=== PATIENT | female | born 1985 | race Caucasian/White ===

== ENCOUNTER 2017-11-19 14:15 | Outpatient (CLI) | payer MEDICAID, SELFPAY ==
[2017-11-19 15:11] LABS: Hemoglobin A1C 5.2 % (4.5-6.2)
[2017-11-19 15:44] LABS: ALT 33 U/L (12-78); AST 23 U/L (15-37); Albumin 3.6 g/dL (3.4-5.0); Alkaline Phosphatase 90 U/L (46-116); Anion Gap 8.8 mmol/L (3-11); BUN 11 mg/dL (7-18); Bilirubin, Total 0.3 mg/dL (0.2-1.0); CO2 25.2 mmol/L (21.0-32.0); CREATININE 0.75 mg/dL (0.55-1.02); Calcium 9.2 mg/dL (8.5-10.1); Chloride 102 mmol/L (98-107); Glucose 131 mg/dL (70-100); Potassium 3.7 mmol/L (3.5-5.1); Sodium 136 mmol/L (136-145); Total Protein 7.6 g/dL (6.4-8.2)
== END 2017-11-19 14:16 ==
PROVIDERS: PCP Physician Assistant Medical; Visit Provider Physician Assistant Medical
DX: R73.9 Hyperglycemia, unspecified (principal)
CPT/HCPCS: 36415; 80053; 83036

== ENCOUNTER 2017-12-09 13:13 | Emergency (ER) | payer MEDICAID, SELFPAY ==
[2017-12-09 13:20] VITALS: BP 140/102; PULSE 83; RESP 12; TEMP 36.9; O2SAT 99
--- NOTE | 2017-12-09 13:30 | W.ED.GENAD ---
Discharge Plan Disposition Patient Disposition: HOME Condition: Stable Discharge Details Chief Complaint: RashLesion Clinical Impression: Rash Primary Care Provider: Sandi Lewis ED Provider: Angel Osorio Home Meds and New Rx's Prescriptions: New prednisone 20 mg tablet 60 mg PO DAILY 5 Days Qty: 15 RF: 0 Continue PNV cmb#95-ferrous fumarate-FA [] 1 EACH tablet 1 ea PO DAILY Qty: 180 RF: 1 nifedipine 60 MG tablet extended release 24hr 60 mg PO DAILY Qty: 30 RF: 3 Discharge Instructions Instructions: Acute Rash (ED) Additional Instructions: the rash appears to be a local skin reaction. Try using coritisone or other over the counter steroid cream. You can also take over the counter benadryl for itching if rash gets more numerous or itching is unbearable you can start taking the prednisone if rash persists next week see your primary care provider if you have difficulty breathing, severe pain or nausea/vomit that is persistent return to the emergency department Discharge Data Discharge Physician: Angel Osorio Medical Decision Making [facility] Narrative Medical decision making narrative: 32 yo female comes in with cc of rash. SHe states she started with a rash in the left arm yesterday and then spread to the abdomen. NO fevers or pain, just states it is itching, hasn't tried taking anything. No new meds or soaps, has a and has been using detergent for her that's different. Suspect contact dermatitis or local reaction, no evidence of anaphlyaxis and no pain or warmth to suggest cellulitis. Will have her take benadryl and cortisone cream and will prescribe prednisone if symptoms continue I advised she start taking this Differential Diagnosis contact dermatitis, urticaria, cat scratch disease HPI - General Adult General Mode of arrival: ambulatory. Date/Time Provider Initiated Documentation: 12/09/17 13:15. Limitations to Documentation: no limitations. Information obtained by: patient. History of Present Illness 32 year old F presents to the emergency department with the chief complaint of rash, described as moderate, with intensity rated at 3. Quality is described as other (itching), and is localized to the abdomen, left and upper extremity. Patient started experiencing this day(s) (1) and it has been constant. No relieving factors improve symptom(s), No exacerbating factors reported . Patient notes no other symptoms.. Patient did receive the following treatments prior to arrival, none Related Data Previous Rx's Medication Instructions Recorded PNV cmb#95-ferrous fumarate-FA 1 ea PO DAILY #180 tab 05/07/17 [] nifedipine 60 mg PO DAILY #30 tab-cap 09/09/17 prednisone 60 mg PO DAILY 5 Days #15 tab 12/09/17 Allergies Allergy/AdvReac Type Severity Reaction Status Date / Time shellfish derived Allergy Severe Anaphylaxsi Unverified 12/09/17 13:24 s cetirizine HCl [From [facility]] AdvReac Mild Headache Unverified 12/09/17 13:24 General Stated Complaint: RashLesion MENG: 5 Review of Systems Review of Systems All systems reviewed & are unremarkable except as noted in HPI and below Constitutional Denies chills, Denies fever(s) and Denies weakness Eyes Patient Denies loss of vision ENT Denies change in voice Cardiovascular Denies chest pain and Denies dyspnea Respiratory Denies dyspnea Gastrointestinal Denies abdominal pain, Denies nausea and Denies vomiting Genitourinary Denies dysuria Musculoskeletal Denies joint swelling Neurologic Denies loss of vision and Denies weakness Psychiatric Denies depression Endocrine Denies cold intolerance and Denies heat intolerance Allergic/Immunologic Reports urticaria PFSH Family History Sister Diabetes Grandmother Cerebrovascular accident Medical History History of HPV infection Hypertension affecting , antepartum Protein C deficiency (07/09/17) Tobacco use Social History Smoking/Tobacco Use Status: Former Tobacco Use Surgical History section (11/05/10) Cholecystectomy Hysteroscopy Exam Const General: no acute distress Orientation: alert HENMT Head: normal to inspection Ears: external ears normal General nose exam: external nose normal Mouth: moist mucous membranes Eyes General: appearance normal, both eyes and all related structures Neck Neck: normal visual inspection Resp Effort & Inspection: normal respiratory effort and able to speak in complete sentences Cardio Rate: regular rate Skin General skin exam: other (multiple small areas of mild erythema less than 2cm in diameter on left arm and abdomen, not warm to touch) Neuro General: alert and oriented x3 Extrem General: normal to inspection Psych Mental Status: mental status grossly normal Course Vital Signs Temperature 36.9 C 12/09/17 13:20 Pulse 83 12/09/17 13:20 Respiratory Rate 12 12/09/17 13:20 Blood Pressure 140/102 H 12/09/17 13:20 Pulse Oximetry 99 12/09/17 13:20 Temperature 36.9 C 12/09/17 13:20 Pulse 83 12/09/17 13:20 Respiratory Rate 12 12/09/17 13:20 Blood Pressure 140/102 H 12/09/17 13:20 Pulse Oximetry 99 12/09/17 13:20
--- NOTE | 2017-12-09 13:35 | ED.GENADUL_ITS ---
Discharge Plan Disposition Patient Disposition: HOME Condition: Stable Discharge Details Chief Complaint: RashLesion Clinical Impression: Rash Primary Care Provider: Sandi Lewis ED Provider: Angel Osorio Home Meds and New Rx's Prescriptions: New prednisone 20 mg tablet 60 mg PO DAILY 5 Days Qty: 15 RF: 0 Continue PNV cmb#95-ferrous fumarate-FA [] 1 EACH tablet 1 ea PO DAILY Qty: 180 RF: 1 nifedipine 60 MG tablet extended release 24hr 60 mg PO DAILY Qty: 30 RF: 3 Discharge Instructions Instructions: Acute Rash (ED) Additional Instructions: the rash appears to be a local skin reaction. Try using coritisone or other over the counter steroid cream. You can also take over the counter benadryl for itching if rash gets more numerous or itching is unbearable you can start taking the prednisone if rash persists next week see your primary care provider if you have difficulty breathing, severe pain or nausea/vomit that is persistent return to the emergency department Discharge Data Discharge Physician: Angel Osorio Medical Decision Making [facility] Narrative Medical decision making narrative: 32 yo female comes in with cc of rash. SHe states she started with a rash in the left arm yesterday and then spread to the abdomen. NO fevers or pain, just states it is itching, hasn't tried taking anything. No new meds or soaps, has a and has been using detergent for her that's different. Suspect contact dermatitis or local reaction, no evidence of anaphlyaxis and no pain or warmth to suggest cellulitis. Will have her take benadryl and cortisone cream and will prescribe prednisone if symptoms continue I advised she start taking this Differential Diagnosis contact dermatitis, urticaria, cat scratch disease HPI - General Adult General Mode of arrival: ambulatory . Date/Time Provider Initiated Documentation: 12/09/17 13:15 . Limitations to Documentation: no limitations . Information obtained by: patient . History of Present Illness 32 year old F presents to the emergency department with the chief complaint of rash, described as moderate, with intensity rated at 3. Quality is described as other (itching), and is localized to the abdomen, left and upper extremity. Patient started experiencing this day(s) (1) and it has been constant. No relieving factors improve symptom(s), No exacerbating factors reported . Patient notes no other symptoms.. Patient did receive the following treatments prior to arrival, none Related Data Previous Rx's Medication Instructions Recorded PNV cmb#95-ferrous fumarate-FA 1 ea PO DAILY #180 tab 05/07/17 [] nifedipine 60 mg PO DAILY #30 tab-cap 09/09/17 prednisone 60 mg PO DAILY 5 Days #15 tab 12/09/17 Allergies Allergy/AdvReac Type Severity Reaction Status Date / Time shellfish derived Allergy Severe Anaphylaxsi Unverified 12/09/17 13:24 s cetirizine HCl [From [facility]] AdvReac Mild Headache Unverified 12/09/17 13:24 General Stated Complaint: RashLesion MENG: 5 Review of Systems Review of Systems All systems reviewed & are unremarkable except as noted in HPI and below Constitutional Denies chills, Denies fever(s) and Denies weakness Eyes Patient Denies loss of vision ENT Denies change in voice Cardiovascular Denies chest pain and Denies dyspnea Respiratory Denies dyspnea Gastrointestinal Denies abdominal pain, Denies nausea and Denies vomiting Genitourinary Denies dysuria Musculoskeletal Denies joint swelling Neurologic Denies loss of vision and Denies weakness Psychiatric Denies depression Endocrine Denies cold intolerance and Denies heat intolerance Allergic/Immunologic Reports urticaria PFSH Family History Sister Diabetes Grandmother Cerebrovascular accident Medical History History of HPV infection Hypertension affecting , antepartum Protein C deficiency (07/09/17) Tobacco use Social History Smoking/Tobacco Use Status: Former Tobacco Use Surgical History section (11/05/10) Cholecystectomy Hysteroscopy Exam Const General: no acute distress Orientation: alert HENMT Head: normal to inspection Ears: external ears normal General nose exam: external nose normal Mouth: moist mucous membranes Eyes General: appearance normal, both eyes and all related structures Neck Neck: normal visual inspection Resp Effort & Inspection: normal respiratory effort and able to speak in complete sentences Cardio Rate: regular rate Skin General skin exam: other (multiple small areas of mild erythema less than 2cm in diameter on left arm and abdomen, not warm to touch) Neuro General: alert and oriented x3 Extrem General: normal to inspection Psych Mental Status: mental status grossly normal Course Vital Signs Temperature 36.9 C 12/09/17 13:20 Pulse 83 12/09/17 13:20 Respiratory Rate 12 12/09/17 13:20 Blood Pressure 140/102 H 12/09/17 13:20 Pulse Oximetry 99 12/09/17 13:20 Temperature 36.9 C 12/09/17 13:20 Pulse 83 12/09/17 13:20 Respiratory Rate 12 12/09/17 13:20 Blood Pressure 140/102 H 12/09/17 13:20 Pulse Oximetry 99 12/09/17 13:20
== END 2017-12-09 13:42 | disposition home or self-care (01) ==
LOC: ER 13:43
PROVIDERS: Emergency Provider Emergency Medicine; PCP Physician Assistant Medical
DX: R21 Rash and other nonspecific skin eruption (principal)
CPT/HCPCS: 99283

== ENCOUNTER 2018-01-02 16:17 | Emergency (ER) | payer MEDICAID, SELFPAY ==
[2018-01-02 16:23] VITALS: BP 136/101; PULSE 115; RESP 18; TEMP 36.7; O2SAT 98
--- NOTE | 2018-01-02 16:32 | W.ED.GENAD ---
Discharge Plan Disposition Patient Disposition: HOME Condition: Stable Discharge Details Chief Complaint: Sorethroat Clinical Impression: Cough Primary Care Provider: Sandi Lewis ED Provider: Angel Osorio Home Meds and New Rx's Prescriptions: New doxycycline hyclate 100 mg tablet 100 mg PO BID Qty: 14 RF: 0 Continue PNV cmb#95-ferrous fumarate-FA [] 1 EACH tablet 1 ea PO DAILY Qty: 180 RF: 1 nifedipine 60 MG tablet extended release 24hr 60 mg PO DAILY Qty: 30 RF: 3 Discharge Instructions Instructions: Acute Cough (ED) Discharge Data Discharge Physician: Angel Osorio Medical Decision Making 32 yo female who states she has a hx of htn, former smoker, who comes in with cc of cough for 3 weeks that is productive. Denies recent fevers, chills, recent travel. She has clear lungs on exam with intermittent hacking cough. I suspect uri but given length of time with the cough will cover for CAP. Normal oxygen saturations and appears well without fevers so do not feel xray indicated. Advised f/u with pcp and return precautions given Differential Diagnosis bronchitis, uri, pna HPI General Mode of arrival: ambulatory. Date/Time Provider Initiated Documentation: 01/02/18 16:21. Limitations to Documentation: no limitations. Information obtained by: patient. History of Present Illness 32 year old F presents to the emergency department with the chief complaint of cough, described as moderate, with intensity rated at 4. No relieving factors improve symptom(s), No exacerbating factors reported . Patient notes other (sore throat). Patient did receive the following treatments prior to arrival, none Related Data Home Medications Medication Instructions Recorded Confirmed PNV cmb#95-ferrous fumarate-FA 1 ea PO DAILY #180 tab 05/07/17 12/09/17 [] nifedipine 60 mg PO DAILY #30 tab-cap 09/09/17 12/09/17 doxycycline hyclate 100 mg PO BID #14 tab 01/02/18 Previous Rx's Medication Instructions Recorded PNV cmb#95-ferrous fumarate-FA 1 ea PO DAILY #180 tab 05/07/17 [] nifedipine 60 mg PO DAILY #30 tab-cap 09/09/17 doxycycline hyclate 100 mg PO BID #14 tab 01/02/18 Allergies Allergy/AdvReac Type Severity Reaction Status Date / Time shellfish derived Allergy Severe Anaphylaxsi Unverified 12/09/17 13:24 s cetirizine HCl [From [facility]] AdvReac Mild Headache Unverified 12/09/17 13:24 General Stated Complaint: Sorethroat MENG: 4 Review of Systems Review of Systems All systems reviewed & are unremarkable except as noted in HPI and below Constitutional Denies chills, Denies fever(s) and Denies weakness Eyes Denies loss of vision ENT Denies change in voice Cardiovascular Denies chest pain and Denies dyspnea Respiratory Denies dyspnea Gastrointestinal Denies abdominal pain, Denies nausea and Denies vomiting Integumentary/Breasts Denies rash Neurologic Denies loss of vision and Denies weakness Psychiatric Denies depression Exam Const General: no acute distress Orientation: alert HENWY Head: normal to inspection Ears: external ears normal General nose exam: external nose normal Mouth: moist mucous membranes Eyes General: appearance normal, both eyes and all related structures Neck Neck: normal visual inspection Resp Effort & Inspection: normal respiratory effort and able to speak in complete sentences Cardio Rate: regular rate Skin General skin exam: no rashes or lesions noted Neuro General: alert and oriented x3 Extrem General: normal to inspection Psych Mental Status: mental status grossly normal Course Vital Signs Temperature 36.7 C 01/02/18 16:23 Pulse 115 H 01/02/18 16:23 Respiratory Rate 18 01/02/18 16:23 Blood Pressure 136/101 H 01/02/18 16:23 Pulse Oximetry 98 01/02/18 16:23 Temperature 36.7 C 01/02/18 16:23 Temperature Source Temporal Artery Scan 01/02/18 16:23 Pulse 115 H 01/02/18 16:23 Respiratory Rate 18 01/02/18 16:23 Respiratory Effort 01/02/18 16:25 Blood Pressure 136/101 H 01/02/18 16:23 Blood Pressure Position Sitting 01/02/18 16:23 Pulse Oximetry 98 01/02/18 16:23 Oxygen Delivery Method Room Air 01/02/18 16:23 Oxygen Flow Rate 0 01/02/18 16:23 Pain Level 0 01/02/18 16:23
--- NOTE | 2018-01-02 16:35 | ED.GENADUL_ITS ---
Discharge Plan Disposition Patient Disposition: HOME Condition: Stable Discharge Details Chief Complaint: Sorethroat Clinical Impression: Cough Primary Care Provider: Sandi Lewis ED Provider: Angel Osorio Home Meds and New Rx's Prescriptions: New doxycycline hyclate 100 mg tablet 100 mg PO BID Qty: 14 RF: 0 Continue PNV cmb#95-ferrous fumarate-FA [] 1 EACH tablet 1 ea PO DAILY Qty: 180 RF: 1 nifedipine 60 MG tablet extended release 24hr 60 mg PO DAILY Qty: 30 RF: 3 Discharge Instructions Instructions: Acute Cough (ED) Discharge Data Discharge Physician: Angel Osorio Medical Decision Making 32 yo female who states she has a hx of htn, former smoker, who comes in with cc of cough for 3 weeks that is productive. Denies recent fevers, chills, recent travel. She has clear lungs on exam with intermittent hacking cough. I suspect uri but given length of time with the cough will cover for CAP. Normal oxygen saturations and appears well without fevers so do not feel xray indicated. Advised f/u with pcp and return precautions given Differential Diagnosis bronchitis, uri, pna HPI General Mode of arrival: ambulatory . Date/Time Provider Initiated Documentation: 01/02/18 16:21 . Limitations to Documentation: no limitations . Information obtained by: patient . History of Present Illness 32 year old F presents to the emergency department with the chief complaint of cough, described as moderate, with intensity rated at 4. No relieving factors improve symptom(s), No exacerbating factors reported . Patient notes other (sore throat). Patient did receive the following treatments prior to arrival, none Related Data Home Medications Medication Instructions Recorded Confirmed PNV cmb#95-ferrous fumarate-FA 1 ea PO DAILY #180 tab 05/07/17 12/09/17 [] nifedipine 60 mg PO DAILY #30 tab-cap 09/09/17 12/09/17 doxycycline hyclate 100 mg PO BID #14 tab 01/02/18 Previous Rx's Medication Instructions Recorded PNV cmb#95-ferrous fumarate-FA 1 ea PO DAILY #180 tab 05/07/17 [] nifedipine 60 mg PO DAILY #30 tab-cap 09/09/17 doxycycline hyclate 100 mg PO BID #14 tab 01/02/18 Allergies Allergy/AdvReac Type Severity Reaction Status Date / Time shellfish derived Allergy Severe Anaphylaxsi Unverified 12/09/17 13:24 s cetirizine HCl [From [facility]] AdvReac Mild Headache Unverified 12/09/17 13:24 General Stated Complaint: Sorethroat MENG: 4 Review of Systems Review of Systems All systems reviewed & are unremarkable except as noted in HPI and below Constitutional Denies chills, Denies fever(s) and Denies weakness Eyes Denies loss of vision ENT Denies change in voice Cardiovascular Denies chest pain and Denies dyspnea Respiratory Denies dyspnea Gastrointestinal Denies abdominal pain, Denies nausea and Denies vomiting Integumentary/Breasts Denies rash Neurologic Denies loss of vision and Denies weakness Psychiatric Denies depression Exam Const General: no acute distress Orientation: alert HENND Head: normal to inspection Ears: external ears normal General nose exam: external nose normal Mouth: moist mucous membranes Eyes General: appearance normal, both eyes and all related structures Neck Neck: normal visual inspection Resp Effort & Inspection: normal respiratory effort and able to speak in complete sentences Cardio Rate: regular rate Skin General skin exam: no rashes or lesions noted Neuro General: alert and oriented x3 Extrem General: normal to inspection Psych Mental Status: mental status grossly normal Course Vital Signs Temperature 36.7 C 01/02/18 16:23 Pulse 115 H 01/02/18 16:23 Respiratory Rate 18 01/02/18 16:23 Blood Pressure 136/101 H 01/02/18 16:23 Pulse Oximetry 98 01/02/18 16:23 Temperature 36.7 C 01/02/18 16:23 Temperature Source Temporal Artery Scan 01/02/18 16:23 Pulse 115 H 01/02/18 16:23 Respiratory Rate 18 01/02/18 16:23 Respiratory Effort 01/02/18 16:25 Blood Pressure 136/101 H 01/02/18 16:23 Blood Pressure Position Sitting 01/02/18 16:23 Pulse Oximetry 98 01/02/18 16:23 Oxygen Delivery Method Room Air 01/02/18 16:23 Oxygen Flow Rate 0 01/02/18 16:23 Pain Level 0 01/02/18 16:23
[2018-01-02 17:32] VITALS: BP 110/70; PULSE 89; RESP 18; TEMP 36.8; O2SAT 99
== END 2018-01-02 16:45 | disposition home or self-care (01) ==
LOC: ER 16:44
PROVIDERS: Emergency Provider Emergency Medicine; PCP Physician Assistant Medical
DX: R05 Cough (principal); I10 Essential (primary) hypertension; Z87.891 Personal history of nicotine dependence
CPT/HCPCS: 99283

== ENCOUNTER 2018-02-19 00:26 | Outpatient (CLI) | payer MEDICAID, SELFPAY ==
--- NOTE | 2018-02-19 08:00 | DI.US_ITS ---
SYMPTOM/DIAGNOSIS: IUD PLACEMENT, UNABLE TO LOCATE STRINGS, Z30.431 PELVIC ULTRASOUND: Pelvic ultrasound was performed transabdominally and transvaginally. Please see worksheet for measurements of the pelvic structures. There is an IUD in place in the endometrial cavity. Endometrial stripe is about 6 mm. in thickness and appears fairly homogeneous. There may be trace free fluid in the endometrial cavity. The myometrium is unremarkable. Right ovary contains an approximately 17 by 16 by 8 mm. in diameter complex cyst as well as a 12 mm. cyst with some low level internal echoes, these may represent hemorrhagic cysts. Other etiologies not excluded and follow up examination is recommended. Left ovary has a normal follicular appearance. CONCLUSION: 1. IUD in place in the endometrial cavity, trace free fluid may be present in the endometrial cavity. 2. Small complex cysts, probably representing hemorrhagic cysts in right ovary. Follow up ultrasound suggested in 4-6 weeks.
== END 2018-02-19 00:46 ==
PROVIDERS: PCP Physician Assistant Medical; Visit Provider Nurse Practitioner Women's Health
DX: N83.01 Follicular cyst of right ovary (principal); Z30.431 Encounter for routine checking of intrauterine contraceptive device
CPT/HCPCS: 76830; 76856

== ENCOUNTER 2018-03-25 00:42 | Outpatient (CLI) | payer MEDICAID, SELFPAY ==
--- NOTE | 2018-03-25 13:03 | DI.US_ITS ---
SYMPTOMS/DIAGNOSIS: RIGHT OVARIAN CYST, F/U FROM US ON 02/19/18, N83.201 PELVIC ULTRASOUND: Transabdominal and transvaginal examination was performed. The uterus measures 8 cm long x 4.2 cm AP x 5.8 cm transverse. No myometrial mass is present. There is an intrauterine device seen within the body of the endometrium. There is a question of possible extension of one of the arms of the intrauterine device into the myometrium. The right ovary measures 3.1 x 1.8 x 3.1 cm. There are small follicular cysts. There is normal blood flow. No evidence of torsion is seen. The left ovary measures 2.7 x 1.7 x 2.8 cm. There are multiple follicular cysts. There is normal blood flow. No evidence of torsion. There is an involutional cyst seen on the left ovary. No significant free fluid is seen. No hydronephrosis is identified. Note is made of diffuse increased echogenicity of the liver suggesting hepatic steatosis. IMPRESSION: 1. Resolution of the previously noted right ovarian cyst. 2. Intrauterine device in place. It appears stable in position compared to the examination from 02/19/18.
== END 2018-03-25 01:02 ==
PROVIDERS: PCP Physician Assistant Medical; Visit Provider Nurse Practitioner Women's Health
DX: N83.201 Unspecified ovarian cyst, right side (principal); Z97.5 Presence of (intrauterine) contraceptive device; K76.0 Fatty (change of) liver, not elsewhere classified; N83.01 Follicular cyst of right ovary; N83.02 Follicular cyst of left ovary
CPT/HCPCS: 76830; 76856

== ENCOUNTER 2018-10-15 20:20 | Outpatient (REF) | payer MEDICAID, SELFPAY | END 2018-10-15 20:40 | LOC: LBN 20:20 | PROVIDERS: PCP Physician Assistant Medical; Visit Provider Nurse Practitioner Women's Health | DX: R30.0 Dysuria (principal) | CPT/HCPCS: 87086 ==

== ENCOUNTER 2018-10-29 08:19 | Emergency (ER) | payer MEDICAID, SELFPAY ==
--- NOTE | 2018-10-29 08:21 | ED.GENADUL_ITS ---
Discharge Plan Disposition Patient Disposition: HOME Condition: Fair Discharge Details Chief Complaint: RashLesion Clinical Impression: Allergic reaction Primary Care Provider: Sandi Lewis ED Provider: Shweta Pemberton Home Meds and New Rx's Prescriptions: New prednisone 20 mg tablet 40 mg PO DAILY Qty: 6 RF: 0 Continued Mirena 20 mcg/24 hr (5 years) intrauterine device 1 insert IY ONCE RF: 0 PNV cmb#95-ferrous fumarate-FA [] 1 EACH tablet 1 ea PO DAILY Qty: 180 RF: 1 Discharge Instructions Instructions: Prednisone (By mouth), General Allergic Reaction (ED) Additional Instructions: Encourage hydration. Please take prednisone as prescribed, first dose given here today. You may use Benadryl or other antihistamine to help with symptomatic management. If you develop fevers/chills, shortness of breath, difficulty breathing, vomiting or other new/worsening symptoms please seek care urgently once again. Please follow up with primary care next week, please have them reevaluate your breast as well as your rash. Referrals: Sandi Lewis [Primary Care Provider] - Medical Decision Making Patient is a 33 year old female with c/c of rash that began yesterday and has gotten worse this AM. Was concerned that she may have been developing hand foot and mouth yesterday but states that no rash has developed on the palms or soles. Patient works in a daycare. Reports that multiple of the children she has been around have been ill, some with strep throat. Se is endorsing sore throat. Endorsing right ear pain/itching. On exam, she appears nontoxic, is itching frequently. She has a migratory blanchable erythematous rash and urticaria. Areas of excoriation noted on extremities.Lungs are clear. No intraoral lesions. Patient had also been endorsing left breast discomfort which has since resolved. Had nipple discharge yesterday. Normal breast exam today. POC and rapid strep both negative today. Patients history and exam today are consistent with allergic reaction. As she is having intraoral itching, will begin patient on prednisone. At this point, I do not see evidence of breast discharge, abscess, infection. Have asked that she f/u with PCP next week for reevaluation. We discussed new/worsening symptoms and when to seek care urgently once again. Discussed s/e associated with prednisone. All of her questions and concerns were addressed, she is in agreement iwth this plan HPI General Mode of arrival: ambulatory . Limitations to Documentation: no limitations . Information obtained by: patient and RN notes reviewed . HPI Narrative: Patient mario 33 year old female presenting today with c/c of itching. States that she began having itching on her hands and feet yesterday. Awoke this morning feeling much more diffuse. Endorses itching in mouth, right ear, chest, abdomen and extremities. No known new contact or allergen. Denies SOB, CP. Has not noted any lesions in her mouth. Is also endorsing sore throat. No cough. No fevers/chills. No GI upset. Patient also had left breast pain yesterday and noted discharge from her nipple. Patient is one year , states that she did not breast feed this child. Denies pain in this breast today. No vaginal discharge. States that she just finished her menses. Patient has IUD in place. Related Data Home Medications Medication Instructions Recorded Confirmed PNV cmb#95-ferrous fumarate-FA 1 ea PO DAILY #180 tab 05/07/17 10/15/18 [] levonorgestrel 20 mcg/24 hours (5 1 insert IY ONCE 02/17/18 10/15/18 yrs) 52 mg intrauterine device prednisone 40 mg PO DAILY #6 tab 10/29/18 Previous Rx's Medication Instructions Recorded PNV cmb#95-ferrous fumarate-FA 1 ea PO DAILY #180 tab 05/07/17 [] prednisone 40 mg PO DAILY #6 tab 10/29/18 Allergies Allergy/AdvReac Type Severity Reaction Status Date / Time shellfish derived Allergy Severe Anaphylaxsi Unverified 10/15/18 12:53 s cetirizine HCl [From Zyrtec] AdvReac Mild Headache Unverified 10/15/18 12:53 General MENG: 4 Review of Systems Constitutional Reports as per HPI, Denies chills, Denies fatigue, Denies fever(s), Denies headache(s) and Denies poor appetite Eyes Reports as per HPI, Denies eye discharge and Denies irritation ENT Reports as per HPI, Denies ear discharge, Reports otalgia, Denies headache(s), Denies neck pain, Denies post nasal drip, Denies sinus pain, Denies sinus pressure, Reports sore throat, Denies throat swelling and Denies tongue swelling Cardiovascular Reports as per HPI, Denies chest pain and Denies dyspnea Respiratory Reports as per HPI, Denies cough and Denies dyspnea Gastrointestinal Reports as per HPI, Denies abdominal pain, Denies change in bowel habits, Denies nausea and Denies vomiting Musculoskeletal Denies neck pain Integumentary/Breasts Reports as per HPI, Reports rash and Denies skin pain Neurologic Reports as per HPI and Denies headache(s) Endocrine Denies fatigue Allergic/Immunologic Denies throat swelling and Denies tongue swelling [facility] Medical History History of HPV infection Hypertension affecting , antepartum IUD surveillance (Acute) Protein C deficiency (07/09/17) Tobacco use Surgical History section (11/05/10) Cholecystectomy Hysteroscopy Social History Smoking/Tobacco Use Status: Current every day Tobacco Type: cigarettes Smoking cigarettes per day: 2 Alcohol Intake: never Drug use: Never Substance use type: does not use Do you feel safe in your relationship?: Yes Exam Const General: cooperative, healthy appearing, comfortable, no acute distress, well developed and well groomed Nutritional Appearance: average body habitus and well nourished Orientation: alert and awake [facility] Head: normal to inspection, normocephalic and atraumatic Ears: hearing grossly normal bilaterally, external ears normal and TM's normal bilaterally General nose exam: external nose normal and nares normal Face and sinus: normal facial exam, sinuses nontender and face symmetric Mouth: oral mucosae normal, lip normal, tongue normal, oropharynx normal and moist mucous membranes Teeth and gingiva: dentition normal Throat: posterior oropharynx normal, tonsils normal and uvula midline Eyes General: appearance normal, both eyes and all related structures Neck Neck: not normal to visual inspection (rash as below), full ROM, no lymphadenopathy and no meningeal signs Chest Breast inspection: normal inspection of the breasts and normal inspection of the axillae Breast palpation: normal palpation of the breasts, normal palpation of the axillae and no axillary lymphadenopathy Resp Effort & Inspection: normal respiratory effort, able to speak in complete sentences and no respiratory distress Auscultation: clear to auscultation bilaterally, no rales, no rhonchi and no wheezes Cardio Rate: regular rate Rhythm: regular rhythm Heart Sounds: S1 normal and S2 normal GI Inspection: abnormal to inspection (rash on abdomen as below) Skin Rashes: rashes noted (migratory blanchable erythematous rash) Full body images: 1. rash is seen migrating while visiting, blanchable, erythematous rash initially seen as drawn. Hives on abdomen. 2. 3. 4. Neuro General: alert and awake Cognition: normal cognition Speech: speech normal Gait: normal gait Psych Appearance: grossly normal and well kempt Mental Status: mental status grossly normal Speech and Movement: speech and movement normal
[2018-10-29 08:25] VITALS: RESP 16; TEMP 36.8; O2SAT 100
[2018-10-29 08:48] VITALS: BP 145/97; PULSE 81
[2018-10-29] MEDS: predniSONE 20 MG TAB 40 MG PO (08:49)
[2018-10-29 09:09] VITALS: BP 138/97; PULSE 80; RESP 16; O2SAT 100
== END 2018-10-29 09:10 | disposition home or self-care (01) ==
PROVIDERS: Emergency Provider Physician Assistant; PCP Physician Assistant Medical
DX: L29.9 Pruritus, unspecified (principal); L50.0 Allergic urticaria; J02.9 Acute pharyngitis, unspecified; H92.01 Otalgia, right ear; N64.52 Nipple discharge
CPT/HCPCS: 81025; 87880; 99283; 87081; J7512

== ENCOUNTER 2018-11-20 17:11 | Emergency (ER) | payer MEDICAID, SELFPAY ==
[2018-11-20 17:18] VITALS: BP 151/108; PULSE 115; RESP 16; TEMP 36.7; O2SAT 98
--- NOTE | 2018-11-20 17:29 | ED.GENADUL_ITS ---
Discharge Plan Disposition Patient Disposition: HOME Condition: Fair Discharge Details Chief Complaint: RashLesion Clinical Impression: Acute urticaria Primary Care Provider: Sandi Lewis ED Provider: Shweta Pemberton Home Meds and New Rx's Prescriptions: New hydroxyzine HCl 25 mg tablet 25 mg PO TID PRN (Reason: itching) Qty: 20 RF: 0 Continued Mirena 20 mcg/24 hr (5 years) intrauterine device 1 insert IY ONCE RF: 0 Discharge Instructions Instructions: Hydroxyzine (By mouth), Urticaria (ED) Additional Instructions: Encourage hydration. Please try to decrease your stress. Please take hydroxyzine as prescribed as needed for symptom medic management. This may make you drowsy, please do not take this medication while driving. If you develop fever/chills, pain, inability stay hydrated or other new/worsening symptoms please seek care urgently once again. Otherwise, please follow-up with primary care this week for reevaluation. You may need follow-up with b operator and/or evaluation for allergy testing. Referrals: Sandi Lewis [Primary Care Provider] - Discharge Data Discharge Date/Time-TO BE ENTERED AT DEPARTURE: 11/20/18 21:10 Medical Decision Making <Faisal Ayala MD - Last Filed: 12/05/18 08:21> Patient evaluated and treated by JONATHAN Pemberton - please see her documentation regarding ED course and treatment. I did not evaluate the patient. I discussed the case with JONATHAN Pemberton and reviewed her documentation and agree with treatment plan as outlined. <JONATHAN Rodriguez - Last Filed: 11/24/18 00:09> Patient is a 33-year-old female presenting today with chief complaint of rash is persistent over the past month. She is been on 2 half weeks of prednisone despite that her urticarial rash persist. She reports that rash is consistent but is migratory in nature. Reports it is very itchy. She denies any fevers or chills. Denies any recent travel. No known STD history. No new sexual partners. Is under a lot of stress recently. On exam, patient has a rash on her back that is erythematous, nontender to palpation, warmth. The area of excoriation is raised blanched. Given the length of her symptoms, I feel that screen with labs at this time. She denies any history of syphilis we will obtain syphilis serology. Lungs are clear, no wheezes, rales or rhonchi. No stridor. No intraoral lesions. Rash is not noted elsewhere. She is teary on exam speaking of her current life stressors. Patient is tachycardic at 115. We will hydrate. She does report that she has not been drinking as much water step secondary to her stress. Labs reviewed by myself, she is a slightly elevated white count of 12.45. Anion gap 11.9. Creatinine is 1.17. Glucose is elevated at 212 discussed these findings with the patient. I do not see any evidence of active infection at this time. Rash not consistent with cellulitis. Discussed the patient's glucose, she reports that she has known mild elevation of her glucose, had a history of ges tational diabetes. Reports that diabetes is very common in her family. Will obtain A1c. This will not be available for review tonight. Do not see any reason to perform imaging at this time. Patient's heart rate is downtrending at 100 after 1 L of fluids. We discussed risks and benefits of continuing steroids at this point and I feel is appropriate as she had no relief after 2 weeks of steroids. After reviewing erythema the patient, she is now reporting that the rash is actually intermittent. States it only comes on during times of stress. States it does come on after work, states that it comes back every night at 5:00. However, she has noticed the rash is not present when she is distracted or busy with friends. Concerned this is stress reaction. I advised that she continue with oral antihistamines and try stress reduction techniques. I have encouraged her to follow-up closely with her primary care. She is given strict return precautions. Syphilis serology is still pending, will contact her with any positive results. All of her questions and concerns were addressed and she is in agreement this plan. She will discuss the findings of the A1c further with her primary care. HPI <Faisal Ayala MD - Last Filed: 12/05/18 08:21> General Date/Time Provider Initiated Documentation: 11/20/18 17:29 . Related Data Home Medications Medication Instructions Recorded Confirmed levonorgestrel 20 mcg/24 hours (5 1 insert IY ONCE 02/17/18 11/20/18 yrs) 52 mg intrauterine device hydroxyzine HCl 25 mg PO TID PRN #20 tab 11/20/18 Previous Rx's Medication Instructions Recorded hydroxyzine HCl 25 mg PO TID PRN #20 tab 11/20/18 Allergies Allergy/AdvReac Type Severity Reaction Status Date / Time shellfish derived Allergy Severe Anaphylaxsi Unverified 11/20/18 17:21 s [facility] AdvReac Mild Headache Unverified 11/20/18 17:21 <JONATHAN Rodriguez - Last Filed: 11/24/18 00:09> General Mode of arrival: ambulatory . Limitations to Documentation: no limitations . Information obtained by: patient and RN notes reviewed . HPI Narrative: Patient is a 33-year-old female, well-known to myself, with chief complaint of rash. She was seen by myself on 10/29/2018 for the same rash. At that time, her rash was consistent with allergic reaction and patient was treated with prednisone. REports that despite this her rash persisted. She was then evaluated by her PCP who cnotinued her steroids further. Reports that she was on 40mg of Prednisone QD x 2.5 weeks and aburptly stopped 1 week ago. She reports that the initial prescription was for a taper from her PCP but that as her symptoms persisted she continued with the higher dosing and did not taper. States that rash is itchy, migratory. Reports that it is constantly present. Denies fevers/chills. No URI symptoms. States she has been very stressed recently. Reports that she recently split up from her significant other and buried her sister who a few months ago. No GI upset. No vaginal discharge. General Stated Complaint: RashLesion MENG: 5 <JONATHAN Rodriguez Last Filed: 11/24/18 00:09> Constitutional Reports as per HPI, Denies chills, Denies fatigue, Denies fever(s) and Denies headache(s) ENT Denies headache(s) Cardiovascular Reports as per HPI, Denies chest pain and Denies dyspnea Respiratory Reports as per HPI, Denies cough and Denies dyspnea Gastrointestinal Reports as per HPI, Denies abdominal pain, Denies nausea and Denies vomiting Musculoskeletal Reports as per HPI and Denies back pain Integumentary/Breasts Reports as per HPI, Denies photosensitivity, Reports rash, Denies skin pain and Denies skin swelling Neurologic Reports as per HPI and Denies headache(s) Endocrine Denies fatigue PFSH <Faisal Ayala MD - Last Filed: 12/05/18 08:21> Medical History History of HPV infection -HRHPV in 2017, resolved Hypertension affecting , antepartum 07/2015 Pt developed DBP 102 range. 08/2017 Required Nifedipine and Labetalol by time of delivery. 09/22/17 No meds givenat time of postop discharge. IUD surveillance (Acute) IUD strings not visible on exam. IUD in proper placement confirmed by US 03/25/18 Protein C deficiency (07/09/17) Protein C activity 51 (70-140) Tobacco use Surgical History section (11/05/10) LTCS. 38w2d 5lb5oz. M. IOL x48hr for IUGR. No labor, no cervical change. C/S for failed induction. Dr. Garces [facility]. 2 layer closure 0-Vicryl. 09/21/17 RC/S for IUGR @ 28w. F. 490gms. 9/9. [facility] [place]. Cholecystectomy Hysteroscopy 01/06/17 retrieval of Mirena IUD Social History Smoking/Tobacco Use Status: Current every day Tobacco Type: cigarettes Alcohol Intake: never Drug use: Never Substance use type: does not use Do you feel safe in your relationship?: Yes <JONATHAN Rodriguez - Last Filed: 11/24/18 00:09> Const General: cooperative, healthy appearing, comfortable, no acute distress, well developed and anxious (patient is teary and sad talking about family) Nutritional Appearance: average body habitus and well nourished Orientation: alert and awake [facility] Head: normal to inspection Mouth: oral mucosae normal, lip normal, tongue normal, oropharynx normal and moist mucous membranes Throat: posterior oropharynx normal, tonsils normal and uvula midline Neck Neck: normal visual inspection, full ROM, no lymphadenopathy and no meningeal signs Resp Effort & Inspection: normal respiratory effort, able to speak in complete sentences and no respiratory distress Auscultation: clear to auscultation bilaterally, no rales, no rhonchi and no wheezes Cardio Rate: regular rate Rhythm: regular rhythm Heart Sounds: S1 normal and S2 normal GI Inspection: normal to inspection Palpation: soft, not firm, no guarding and nontender Back/Spine/Pelvis Back: no CVA tenderness Thoracic/Lumbar Spine: thoracic and lumbar spine normal to inspection (rash as below) Skin Rashes: rashes noted (rash on back, erythematous with raised excoriations. ) Neuro General: alert and awake Cognition: normal cognition Speech: speech normal Gait: normal gait Extrem General: normal to inspection, normal capillary refill, no joint enlargement, no pedal edema and no calf tenderness Psych Appearance: grossly normal and well kempt Mental Status: mental status grossly normal Speech and Movement: speech and movement normal <JONATHAN Rodriguez - Last Filed: 11/24/18 00:09> Vital Signs Temperature 36.7 C 11/20/18 17:18 Pulse 115 H 11/20/18 17:18 Respiratory Rate 16 11/20/18 17:18 Blood Pressure 151/108 H 11/20/18 17:18 Pulse Oximetry 98 11/20/18 17:18 Temperature 36.7 C 11/20/18 17:18 Temperature Source Skin 11/20/18 17:18 Pulse 115 H 11/20/18 17:18 Respiratory Rate 16 11/20/18 17:18 Respiratory Effort Non-Labored 11/20/18 17:22 Blood Pressure 151/108 H 11/20/18 17:18 Pulse Oximetry 98 11/20/18 17:18 Pain Level 0 11/20/18 17:18
[2018-11-20] MEDS: Normal Saline 1,000 ML 1000 ML IV (18:34)
[2018-11-20 18:40] VITALS: BP 149/92
[2018-11-20 18:57] LABS: Abs Immature Grans 0.02 k/cumm (0.0-0.09); Absolute Eosinophil Count 0.25 k/cumm (0.0-0.7); Absolute Lymphocyte Count 4.33 k/cumm (1.2-3.4); Absolute Monocyte Count 0.72 k/cumm (0.11-0.7); Basophils % 0.2; HCT 46.3 % (36.0-46.0); HGB 15.4 g/dL (12.0-15.5); Immature Grans % 0.2; Lymphocytes % 34.8; Mean Corp. HGB Concentration 33.3 g/dL (32.0-36.0); Mean Corpuscular Hemoglobin 30.3 pg (27.0-33.0); Mean Platelet Volume 10.5 fL (8.0-11.0); Monocytes % 5.8; Platelet Count 275 x1000/uL (130-400); RBC 5.09 m/cumm (4.00-5.20); RBC Distribution Width 13.2 % (11.7-14.6); White Blood Cell Count 12.45 k/cumm (4.4-10.8)
[2018-11-20 18:58] LABS: Absolute Basophil Count 0.02 k/cumm (0.0-0.2)
[2018-11-20 19:14] LABS: ALT 47 U/L (14-59); Albumin 3.1 g/dL (3.4-5.0); Alkaline Phosphatase 96 U/L (46-116); Anion Gap 11.9 mmol/L (3-11); BUN 14 mg/dL (7-18); Bilirubin, Total 0.3 mg/dL (0.2-1.0); CO2 25.1 mmol/L (21.0-32.0); CREATININE 1.17 mg/dL (0.55-1.02); Calcium 8.8 mg/dL (8.5-10.1); Chloride 103 mmol/L (98-107); Estimated GFR 53.95 (mL/min/1.73m2); Glucose 212 mg/dL (70-100); Potassium 3.8 mmol/L (3.5-5.1); Sodium 140 mmol/L (136-145); Total Protein 7.1 g/dL (6.4-8.2)
[2018-11-20 19:21] LABS: TSH (W/Ref FT4) 1.23 uIU/mL (0.36-3.74)
[2018-11-20 19:32] LABS: AST 37 U/L (15-37)
[2018-11-20 19:45] VITALS: BP 136/105; PULSE 108; RESP 18; TEMP 36.7; O2SAT 98
[2018-11-20 21:02] VITALS: BP 137/100; PULSE 100; RESP 18; O2SAT 99
[2018-11-21 05:54] LABS: Hemoglobin A1C 6.6 % (4.5-6.2)
[2018-11-22 10:58] LABS: Syphilis Serology (RPR) Negative (Negative)
== END 2018-11-20 21:10 | disposition home or self-care (01) ==
PROVIDERS: Emergency Provider Physician Assistant; PCP Physician Assistant Medical
DX: L50.9 Urticaria, unspecified (principal); R00.0 Tachycardia, unspecified; R73.9 Hyperglycemia, unspecified
CPT/HCPCS: 36415; 80053; 96360; 99284; 83036; 84443; 85025; 86592

== ENCOUNTER 2018-12-09 01:35 | Outpatient (CLI) | payer MEDICAID, SELFPAY ==
[2018-12-13 17:28] LABS: CLASS 0; Rhodotorula IgE <0.35 kU/L (<0.35)
[2018-12-22 08:05] LABS: Alternaria Tenuis IgE <0.35 kU/L; Aspergillus Fumigatus IgE <0.35 kU/L; Cat Epithelium IgE 4.36 kU/L; Cladosporium IgE <0.35 kU/L; Fusarium moniliforme, IgE <0.35 kU/L (<0.35); Stemphyllium IgE <0.35 kU/L
[2018-12-22 08:08] LABS: Misc Referral (MAYO) See Comments
[2018-12-22 08:11] LABS: Penicillium chrysogenum IgE <0.35 kU/L
== END 2018-12-09 01:55 ==
PROVIDERS: PCP Physician Assistant Medical; Visit Provider Physician Assistant Medical
DX: L50.8 Other urticaria (principal)
CPT/HCPCS: 36415; 86003

== ENCOUNTER 2019-03-04 21:23 | Emergency (ER) | payer MEDICAID, SELFPAY ==
[2019-03-04 21:26] VITALS: BP 142/100; PULSE 118; RESP 18; TEMP 36.3; O2SAT 99
[2019-03-04 21:43] VITALS: BP 141/97; PULSE 94; RESP 18; O2SAT 100
--- NOTE | 2019-03-04 21:47 | ED.GENADUL_ITS ---
Discharge Plan Discharge Details Chief Complaint: Abd Prob Primary Care Provider: Sandi Lewis ED Provider: Shweta Pemberton Home Meds and New Rx's Prescriptions: No Action Mirena 20 mcg/24 hr (5 years) intrauterine device 1 insert IY ONCE RF: 0 cetirizine 10 mg Tablet 10 mg PO DAILY RF: 0 famotidine 20 mg Tablet 20 mg PO BID RF: 0 hydroxyzine HCl 25 mg Tablet 25 mg PO QHS RF: 0 Discharge Data Discharge Date/Time-TO BE ENTERED AT DEPARTURE: 03/05/19 00:10 Medical Decision Making Patient is a 33 year old female presenting today [facility] c/c of diarrhea that began a few hours prior to arrival. reprots 6 episodes of soft BM that started off brown and is now more of a pink color. No bright red blood or melena. Iain fevers/chills. No abdominal elizabeth on history or exam. Denies dysurea, frequency or urgency. Denies vaginal discharge. Patient has chronic, intermittent rash dominick t is not currenly active. Was seen by dermatology recently and started on new medications. She states that she took one dose of the prescribed medications yesterday but has not taken any today. No previous abdominal surgeries. Reprots that she has had intermittent nausea but denies feeling nauseated at this time. LMP one week ago. On exam, patient is resting comfortably. She is tachycardic at 118 when initially evaluated by nursing staff but this is down with auscultation. Abdomen is benign with no tenderness elicited on exam. Normal bowel sounds. Patient declines rectal exam. However, she does believe she will be able to give a stool sample for heme testing. Reviewed note from dermatology. Patient was advised to avoid NSAIDs and aspirin. Was begun on cetirizine, famotidine, hydroxyzine for dermatographism. Patient is unable to give a stool sample. Again offered rectal exam which she continues to decline. She would prefer to obtain outpatient stool sample she can bring back to the lab for heme testing. As the patient was questioning if she may have recently been on antibiotic, also ordered C. difficile testing although I do not see any history of antibiotic usage recently. Advised that her symptoms are most likely attributed to gastroenteritis which is likely a viral etiology. She is given strict return precautions. Particular, I advised that she return with any abdominal pain, inability stay hydrated, notable blood in her stool, weakness or other new/worsening symptoms. All her questions and concerns were addressed and she is agreement this plan. Plan to discharge the patient home with Phenergan in the event that her nausea returns. HPI General Mode of arrival: ambulatory . Date/Time Provider Initiated Documentation: 03/04/19 21:47 . Limitations to Documentation: no limitations . Information obtained by: patient and RN notes reviewed . HPI Narrative: Patient is a 33 year old female presenting today with c/c of diarrhea that began this afternoon. States that since 1600, she has had approximately 6 BM. Initially, BM was soft and brown. Took pepto and noted stool to be more of a pink color. Denies latoya red blood, no melena. Also endorses nausea, not currently nauseated though. Denies abdominal pain. States that she began new medications yesterday, believes they are antibiotics, as prescribed by dermatology. However, she states that she only took them x 1 yesterday, did not take any today. No recent travel. No fevers/chills. Denies rectal pain. LMP one week ago. Related Data Home Medications Medication Instructions Recorded Confirmed levonorgestrel 20 mcg/24 hours (5 1 insert IY ONCE 02/17/18 11/20/18 yrs) 52 mg intrauterine device cetirizine 10 mg PO DAILY 03/04/19 03/04/19 famotidine 20 mg PO BID 03/04/19 03/04/19 hydroxyzine HCl 25 mg PO QHS 03/04/19 03/04/19 Allergies Allergy/AdvReac Type Severity Reaction Status Date / Time shellfish derived Allergy Severe Anaphylaxsi Unverified 03/04/19 21:34 s cetirizine HCl [From Zyrte] AdvReac Mild Headache Unverified 03/04/19 21:34 General Stated Complaint: Abd Prob MENG: 3 Review of Systems Constitutional Constitutional: Reports as per HPI, Denies chills, Denies fatigue, Denies fever(s) and Denies headache(s) ENT Ears, Nose, Mouth, and Throat: Denies headache(s) Cardiovascular Cardiovascular: Reports as per HPI, Denies chest pain and Denies dyspnea Respiratory Respiratory: Reports as per HPI, Denies cough and Denies dyspnea Gastrointestinal Gastrointestinal: Reports as per HPI Musculoskeletal Musculoskeletal: Reports as per HPI and Denies back pain Integumentary/Breasts Skin/Breast: Reports as per HPI and Reports rash (chronic, intermittent rash. Followed by dermatology) Neurologic Neurologic: Reports as per HPI and Denies headache(s) Endocrine Endocrine: Denies fatigue [facility] Medical History History of HPV infection -HRHPV in 2017, resolved Hypertension affecting , antepartum 07/2015 Pt developed DBP 102 range. 08/2017 Required Nifedipine and Labetalol by time of delivery. 09/22/17 No meds givenat time of postop discharge. IUD surveillance (Acute) IUD strings not visible on exam. IUD in proper placement confirmed by US 03/25/18 Protein C deficiency (07/09/17) Protein C activity 51 (70-140) Tobacco use Surgical History section (11/05/10) LTCS. 38w2d 5lb5oz. M. IOL x48hr for IUGR. No labor, no cervical change. C/S for failed induction. Dr. Garces [facility]. 2 layer closure 0-Vicryl. 09/21/17 RC/S for IUGR @ 28w. F. 490gms. 9/9. [facility] [place]. Cholecystectomy Hysteroscopy 01/06/17 retrieval of Mirena IUD Social History Smoking/Tobacco Use Status: Former Tobacco Use Quit Date: 11/26/18 Tobacco: How many years used: 15 Alcohol Intake: current Alcohol Intake frequency: holidays/special occasions only Alcohol type: wine Drug use: Never Substance use type: does not use Do you feel safe at home: Yes Do you feel safe in your relationship?: Yes Exam Const General: cooperative, healthy appearing, comfortable, no acute distress and well developed Nutritional Appearance: average body habitus and well nourished Orientation: alert and awake HENMT Head: normal to inspection Mouth: moist mucous membranes Resp Effort & Inspection: normal respiratory effort, able to speak in complete sentences and no respiratory distress Auscultation: clear to auscultation bilaterally, no rales, no rhonchi and no wheezes Cardio Rate: regular rate Rhythm: regular rhythm Heart Sounds: S1 normal and S2 normal GI Inspection: normal to inspection, no edema and non-distended Palpation: soft, no hepatosplenomegaly, not firm, no guarding, not rigid and nontender Percussion: normal to percussion Auscultation: normal bowel sounds Back/Spine/Pelvis Back: no CVA tenderness Skin General skin exam: no rashes or lesions noted Trauma: no lacerations or abrasions Neuro General: alert and awake Cognition: normal cognition Speech: speech normal Gait: normal gait Psych Appearance: grossly normal and well kempt Mental Status: mental status grossly normal Speech and Movement: speech and movement normal Course Vital Signs Vital signs: Vital Signs Temperature 36.3 C L 03/04/19 21:26 Pulse 118 H 03/04/19 21:26 Respiratory Rate 18 03/04/19 21:26 Blood Pressure 142/100 H 03/04/19 21:26 Pulse Oximetry 99 03/04/19 21:26 Temperature 36.3 C L 03/04/19 21:26 Temperature Source Skin 03/04/19 21:26 Pulse 94 H 03/04/19 21:43 Respiratory Rate 18 03/04/19 21:43 Respiratory Effort Non-Labored 03/04/19 21:38 Blood Pressure 141/97 H 03/04/19 21:43 Blood Pressure Position Sitting 03/04/19 21:26 Pulse Oximetry 100 03/04/19 21:43 Oxygen Delivery Method Room Air 03/04/19 21:43 Oxygen Flow Rate 0 03/04/19 21:43 Pain Level 3 03/04/19 21:43
--- NOTE | 2019-03-05 09:53 | NUR.NOTE ---
Nursing Note: pt called to obtain her stool results. informed pt that there was no blood in her stool.
== END 2019-03-05 00:10 | disposition home or self-care (01) ==
LOC: ER 21:33
PROVIDERS: Emergency Provider Physician Assistant; PCP Physician Assistant Medical
DX: R19.7 Diarrhea, unspecified (principal)
CPT/HCPCS: 99281; 82272; 83630; 87324

== ENCOUNTER 2019-03-11 13:19 | Outpatient (CLI) | payer MEDICAID, SELFPAY ==
[2019-03-14 11:33] LABS: Hepatitis C Ab w Rflx HCV PCR Negative (Negative)
[2019-03-14 13:26] LABS: HIV-1/2 Ag & Ab Screen Negative (Negative); Hepatitis B Surface Ag Negative (Negative)
[2019-03-14 14:23] LABS: Syphilis Total Ab w/Reflex Nonreactive (Nonreactive)
== END 2019-03-11 13:39 ==
PROVIDERS: PCP Physician Assistant Medical; Visit Provider Nurse Practitioner Family
DX: Z11.3 Encounter for screening for infections with a predominantly sexual mode of transmission (principal); Z11.4 Encounter for screening for human immunodeficiency virus [HIV]; Z11.59 Encounter for screening for other viral diseases
CPT/HCPCS: 36415; 86803; 87340; 87389; 87491; 87591; 86780

== ENCOUNTER 2019-03-11 15:12 | Outpatient (REF) | payer MEDICAID, SELFPAY ==
[2019-03-14 15:22] LABS: Chlamydia Result Negative (Negative); GC Result Negative (Negative)
== END 2019-03-11 15:32 ==
LOC: LBN 15:12
PROVIDERS: PCP Physician Assistant Medical; Visit Provider Nurse Practitioner Family
DX: Z11.3 Encounter for screening for infections with a predominantly sexual mode of transmission (principal)
CPT/HCPCS: 87491; 87591

== ENCOUNTER 2019-04-06 18:36 | Emergency (ER) | payer MEDICAID, SELFPAY ==
[2019-04-06 18:38] VITALS: BP 149/96; PULSE 80; RESP 16; TEMP 36.7; O2SAT 97
--- NOTE | 2019-04-06 18:52 | NUR.NOTE ---
Nursing Note: Pt to bathroom, instructed on clean catch urine
--- NOTE | 2019-04-06 18:52 | W.ED.GENAD ---
Discharge Plan Disposition Patient Disposition: HOME Condition: Good Discharge Details Chief Complaint: Nk/Back Pain Clinical Impression: Acute coccygeal pain Primary Care Provider: Sandi Lewis ED Provider: Shweta Pemberton Home Meds and New Rx's Prescriptions: No Action No Known Home Meds RF: 0 Discharge Instructions Instructions: Lidocaine Patch (On the skin), Coccyx Injury (ED) Additional Instructions: Encourage rest, ice. You may use Tylenol as needed for discomfort. You may use topical patches such as Salonpas or Lidoderm patches for discomfort. Please follow up with primary care in one-two weeks for reevaluation if not improving. Seek care urgently once again if you develop increased pain, weakness, altered sensation or other new/worsening symptoms. Referrals: Sandi Lewis [Primary Care Provider] - Discharge Data Discharge Date/Time-TO BE ENTERED AT DEPARTURE: 04/06/19 20:10 Medical Decision Making Patient is a pleasant 33-year-old female, well-known to myself, chief complaint of coccyx discomfort. She reports that 2 days ago she slipped on a step and landed directly on her tailbone. Since that time, has been having pain, particularly with sitting. She denies any weakness, altered sensation. No change in bowel or bladder habits. Denies any fevers or chills. Denies other injury the time of the incident. Not strike her head, no loss conscious. On exam, she has full range of motion of her spine. Pain is only elicited with palpation directly over the coccyx. Rectal exam is not performed. No saddle paresthesias. Strength is equal bilaterally in lower extremities. Reflexes intact, normal Babinski's. At this time, I see no evidence of cauda equina but am concerned for possible coccygeal fracture. FINDINGS: Bones/joints: Mild periarticular sclerosis in the sacroiliac joint suggestive of mild sacroiliitis. Clinical correlate. No acute fracture or dislocation. Soft tissues: Normal. Organs: IUD in place. IMPRESSION: IUD in place. Mild periarticular sclerosis in the sacroiliac joint suggestive of mild sacroiliitis. Clinical correlate. No acute fracture or dislocation. Discussed these findings with the patient. I am questioning if the coccyx might be slightly absent on the lateral view. However, this will not change the patient's long-term management. We did discuss pain management techniques. She is not having any pain with ambulation. We discussed activities to avoid. She is given return precautions. She will follow-up with primary care in 2 weeks if not improving. All of her questions and concerns were addressed and she is agreement this plan. HPI General Mode of arrival: ambulatory. Date/Time Provider Initiated Documentation: 04/06/19 18:48. Limitations to Documentation: no limitations. Information obtained by: patient and RN notes reviewed. History of Present Illness 33 year old F presents to the emergency department with the chief complaint of coccyx, described as moderate, with intensity rated at 8. Quality is described as aching, and is localized to the buttocks. Patient reports no radiation. Patient started experiencing this day(s) (2) and it has been constant. other things that improve symptom(s), (upright, ambulation) Other factors that worsen symptoms (sitting) . Patient notes no other symptoms.. Patient did receive the following treatments prior to arrival, other (tylenol) Related Data Home Medications Medication Instructions Recorded Confirmed Unknown [No Known Home Meds] 04/06/19 04/06/19 Allergies Allergy/AdvReac Type Severity Reaction Status Date / Time shellfish derived Allergy Severe Anaphylaxsi Verified 04/06/19 18:48 s povidone-iodine Allergy Mild Verified 04/06/19 18:48 [From Betadine] soap [From Betadine] Allergy Mild Verified 04/06/19 18:48 cetirizine HCl [From Zyrtec] AdvReac Mild Headache Verified 04/06/19 18:48 General Stated Complaint: Nk/Back Pain MENG: 4 Review of Systems Constitutional Constitutional: Reports as per HPI, Denies chills, Denies fatigue, Denies fever(s), Denies frequent falls and Denies headache(s) Eyes Eyes: Denies change in vision ENT Ears, Nose, Mouth, and Throat: Denies headache(s) Cardiovascular Cardiovascular: Denies chest pain, Denies dyspnea and Denies dyspnea on exertion Respiratory Respiratory: Denies cough, Denies dyspnea and Denies dyspnea on exertion Gastrointestinal Gastrointestinal: Denies abdominal pain, Denies change in bowel habits and Denies fecal incontinence Genitourinary Genitourinary: Reports as per HPI, Denies urinary incontinence and Denies urinary hesitancy Musculoskeletal Musculoskeletal: Reports as per HPI, Reports back pain, Denies muscle weakness, Denies numbness, Denies radiating pain into limb, Reports stiffness and Denies tingling Integumentary/Breasts Skin/Breast: Reports as per HPI and Denies rash Neurologic Neurologic: Reports as per HPI, Denies frequent falls, Denies headache(s), Denies focal weakness, Denies numbness, Denies radicular pain, Denies sensory deficit, Denies tingling and Denies paresthesias Endocrine Endocrine: Denies fatigue [facility] Social History Smoking/Tobacco Use Status: Former Tobacco Use Quit Date: 11/26/18 Tobacco: How many years used: 15 Alcohol Intake: current Alcohol Intake frequency: holidays/special occasions only Alcohol type: wine Drug use: Never Substance use type: does not use Do you feel safe at home: Yes Do you feel safe in your relationship?: Yes Exam Const General: cooperative, healthy appearing, comfortable, no acute distress, well developed and well groomed Nutritional Appearance: average body habitus and well nourished Orientation: alert and awake Eyes General: appearance normal, both eyes and all related structures Neck Neck: normal visual inspection, full ROM, no lymphadenopathy and no meningeal signs Resp Effort & Inspection: normal respiratory effort and able to speak in complete sentences Auscultation: clear to auscultation bilaterally, no rales, no rhonchi and no wheezes Cardio Rate: regular rate Rhythm: regular rhythm Heart Sounds: S1 normal and S2 normal Back/Spine/Pelvis Back: no CVA tenderness Cervical Spine: normal cervical lordosis, cervical ROM normal, No cervical spinal tenderness and No step off deformity Thoracic/Lumbar Spine: thoracic and lumbar spine normal to inspection, thoraco-lumbar ROM normal, straight leg raise negative bilaterally, No pain with thoraco-lumbar ROM, No paraspinal tenderness, No thoraco-lumbar spasm, No thoracic spinal tenderness and No lumbar spinal tenderness Pelvis: no pain with anterior-posterior compression, no pain with lateral compression, no buttock ecchymosis and no buttock tenderness Sacroiliac joints: bilaterally nontender Sacrum: no ecchymosis, no erythema, no swelling and no tenderness Coccyx: tenderness on direct palpation Skin General skin exam: no rashes or lesions noted Neuro General: alert and awake Cognition: normal cognition Speech: speech normal Gait: normal gait Motor: muscle tone normal throughout, strength 5/5 throughout, no movement abnormalities noted and no fasciculations Sensory Exam: no sensory deficits noted (no saddle paresthesias) DTR's: Rt Patellar: 2+, Lt Patellar: 2+, Rt Ankle: 2+ and Lt Ankle: 2+ Extrem General: normal to inspection, full ROM, normal capillary refill, no joint enlargement, no pedal edema, no calf tenderness and normal gait Psych Appearance: grossly normal and well kempt Mental Status: mental status grossly normal Speech and Movement: speech and movement normal Course Vital Signs Vital signs: Vital Signs Temperature 36.7 C 04/06/19 18:38 Pulse 80 04/06/19 18:38 Respiratory Rate 16 04/06/19 18:38 Blood Pressure 149/96 H 04/06/19 18:38 Pulse Oximetry 97 04/06/19 18:38 Temperature 36.7 C 04/06/19 18:38 Temperature Source Temporal Artery Scan 04/06/19 18:38 Pulse 80 04/06/19 18:38 Respiratory Rate 16 04/06/19 18:38 Respiratory Effort 04/06/19 18:47 Blood Pressure 149/96 H 04/06/19 18:38 Pulse Oximetry 97 04/06/19 18:38 Oxygen Delivery Method Room Air 04/06/19 18:38 Oxygen Flow Rate 0 04/06/19 18:38 Pain Level 8 04/06/19 18:38
[2019-04-06] MEDS: Lidocaine 5% Patch 1 PATCH TP ×2 (19:13→20:05)
--- NOTE | 2019-04-06 19:25 | DI.RAD_ITS ---
EXAM: XR SACRUM COCCYX INDICATION: fall,PAIN COMPARISON: No exams were available for comparison TECHNIQUE: 2D digital imaging was performed. FINDINGS: An IUD is noted. No fracture is identified. The L3-4 through L5-S1 disc spaces are well maintained. No spondylolysis or spondylolisthesis is seen. The SI joints are unremarkable. IMPRESSION: Negative sacrum and coccyx.
--- NOTE | 2019-04-06 19:32 | DI.VRAD_ITS ---
PROCEDURE INFORMATION: Exam: XR Sacrum and Coccyx, 2 or More Views Exam date and time: 04/06/2019 7:24 PM Age: 33 years old Clinical indication: Injury or trauma; Fall; Initial encounter; Blunt trauma (contusions or hematomas); Injury date: 04/06/2019 TECHNIQUE: Imaging protocol: XR of the sacrum and coccyx, 2 or more views. COMPARISON: US PELVIS TRANSVAGINAL 03/25/2018 7:07 AM FINDINGS: Bones/joints: Mild periarticular sclerosis in the sacroiliac joint suggestive of mild sacroiliitis. Clinical correlate. No acute fracture or dislocation. Soft tissues: Normal. Organs: IUD in place. IMPRESSION: IUD in place. Mild periarticular sclerosis in the sacroiliac joint suggestive of mild sacroiliitis. Clinical correlate. No acute fracture or dislocation. Dictated and Authenticated by: Rosi Wooten MD. Ordering:CLEM Rock MD
[2019-04-06 20:05] VITALS: BP 149/96; PULSE 80; RESP 16; O2SAT 97
== END 2019-04-06 20:10 | disposition home or self-care (01) ==
PROVIDERS: Emergency Provider Physician Assistant; PCP Physician Assistant Medical
DX: M53.3 Sacrococcygeal disorders, not elsewhere classified (principal); W10.8XXA Fall (on) (from) other stairs and steps, initial encounter
CPT/HCPCS: 99283; 72220

== ENCOUNTER 2019-04-21 16:45 | Emergency (ER) | payer MEDICAID, SELFPAY ==
[2019-04-21 17:40] VITALS: BP 156/95; PULSE 98; RESP 14; TEMP 36.8; O2SAT 99
--- NOTE | 2019-04-21 17:43 | W.ED.GENAD ---
Discharge Plan Disposition Patient Disposition: HOME Condition: Stable Discharge Details Chief Complaint: Urinary Clinical Impression: UTI (urinary tract infection) Primary Care Provider: Sandi Lewis ED Provider: Iza Price Home Meds and New Rx's Prescriptions: New cephalexin 500 mg tablet 500 mg PO BID 7 Days Qty: 14 RF: 0 phenazopyridine [Pyridium] 100 mg tablet 100 mg PO TID PRN (Reason: pain) Qty: 6 RF: 0 Continued Mirena 20 mcg/24 hours (5 yrs) 52 mg Intrauterine Device 1 device INTRAUTERINE DIRECTED RF: 0 Discharge Instructions Instructions: Urinary Tract Infection in Women (ED) Additional Instructions: Increase oral fluids, take medications as directed make sure to take complete course of antibiotics. Return to the ER for any fever, worsening pain or any concerns. Increase oral intake of yogurt or take a probiotic. Follow up with primary care provider in 3-5 days. Return to ED sooner if any worsening or concerns. Medical Decision Making Medical Records Medical records narrative: 33-year-old female presents with urinary frequency and dysuria x1 day. Associated with some mild lower abdominal cramping. Denies any vaginal discharge, itching, vaginal bleeding. Last menstrual period was approximately 1 month ago, patient does have an IUD in place. Urine obtained and sent to lab and is positive for moderate blood, small leukocytes, 20-50 WBCs. Few epithelial cells. Negative test. At the time this time this indicates a urinary tract infection which I will treat her for with cephalexin and Pyridium. HPI General Date/Time Provider Initiated Documentation: 04/21/19 17:43. HPI Narrative: 33-year-old female presents with urinary frequency and dysuria. Associated with mild abdominal cramping. Denies any vaginal discharge or itching no nausea vomiting diarrhea. Denies any vaginal bleeding. She does have an IUD in place and last known menstrual period was approximately 1 month ago. Related Data Home Medications Medication Instructions Recorded Confirmed Mirena 1 device INTRAUTERINE DIRECTED 04/21/19 04/21/19 cephalexin 500 mg PO BID 7 Days #14 tab 04/21/19 phenazopyridine [Pyridium] 100 mg PO TID PRN #6 tab 04/21/19 Previous Rx's Medication Instructions Recorded cephalexin 500 mg PO BID 7 Days #14 tab 04/21/19 phenazopyridine [Pyridium] 100 mg PO TID PRN #6 tab 04/21/19 Allergies Allergy/AdvReac Type Severity Reaction Status Date / Time shellfish derived Allergy Severe Anaphylaxsi Verified 04/21/19 18:04 s povidone-iodine Allergy Mild Verified 04/21/19 18:04 [From Betadine] soap [From Betadine] Allergy Mild Verified 04/21/19 18:04 cetirizine HCl [From Zyrtec] AdvReac Mild Headache Verified 04/21/19 18:04 General Stated Complaint: Urinary MENG: 4 Review of Systems Narrative: Constitutional: Negative for weight loss, alert and oriented, well groomed, normal body habitus, appears comfortable. HEENT: Denies trauma, headaches, blurry vision, nasal discharge, sore throat, trouble swallowing. Chest: Denies chest pain, palpitations, irregular rhythm, hypertension. Respiratory: Denies Shortness of breath, cough, hemoptysis. GI: Denies abdominal pain, nausea, vomiting, diarrhea, constipation. : Positive dysuria, and frequency, Denies hematuria, flank pain, vaginal bleeding, rectal bleeding. Neuro: Denies dizziness, blurry vision, weakness, syncope, headache or facial numbness. Hematologic: Denies easy bruising, intolerance to heat or cold, hair loss. All systems reviewed & are unremarkable except as noted in HPI and below PFSH Medical History History of HPV infection -HRHPV in 2016, resolved Hypertension affecting , antepartum 07/2015 Pt developed DBP 102 range. 08/2017 Required Nifedipine and Labetalol by time of delivery. 09/22/17 No meds givenat time of postop discharge. IUD surveillance (Acute) IUD strings not visible on exam. IUD in proper placement confirmed by US 03/25/18 Protein C deficiency (07/09/17) Protein C activity 51 (70-140) Tobacco use Surgical History section (11/05/10) LTCS. 38w2d 5lb5oz. M. IOL x48hr for IUGR. No labor, no cervical change. C/S for failed induction. Dr. Garces [facility]. 2 layer closure 0-Vicryl. 09/21/17 RC/S for IUGR @ 28w. F. 490gms. /9. [facility] [place]. Cholecystectomy Hysteroscopy 01/06/17 retrieval of Mirena IUD Family History Sister , Diabetes complicatio Diabetes Grandmother Stroke Social History Smoking/Tobacco Use Status: Former Tobacco Use Quit Date: 11/26/18 Tobacco: How many years used: 15 Alcohol Intake: current Alcohol Intake frequency: holidays/special occasions only Alcohol type: wine Drug use: Never Substance use type: does not use Do you feel safe at home: Yes Do you feel safe in your relationship?: Yes Exam Const General: cooperative, healthy appearing, comfortable and no acute distress Nutritional Appearance: average body habitus Orientation: alert, awake and oriented x3 Resp Effort & Inspection: normal respiratory effort Auscultation: clear to auscultation bilaterally Cardio Rate: regular rate Rhythm: regular rhythm Heart Sounds: S1 normal and S2 normal GI Inspection: normal to inspection Palpation: soft, no guarding and nontender Auscultation: normal bowel sounds General: No bladder abnormal, No CVA tenderness and deferred (No complaints of vaginal discharge or bleeding, so pelvic exam was deferred) Course Vital Signs Vital signs: Vital Signs Temperature 36.8 C 04/21/19 17:40 Pulse 98 H 04/21/19 17:40 Respiratory Rate 14 04/21/19 17:40 Blood Pressure 156/95 H 04/21/19 17:40 Pulse Oximetry 99 04/21/19 17:40 Temperature 36.8 C 04/21/19 17:40 Pulse 98 H 04/21/19 17:40 Respiratory Rate 14 04/21/19 17:40 Blood Pressure 156/95 H 04/21/19 17:40 Blood Pressure Position Sitting 04/21/19 17:40 Pulse Oximetry 99 04/21/19 17:40 Pain Level 99 04/21/19 17:40
[2019-04-21 17:45] LABS: Bilirubin Negative (Negative); Blood Moderate (Negative); Clarity Clear (Clear); Glucose Negative (Negative); Ketones Negative (Negative); Leukocyte Esterase Small (Negative); Nitrite Negative (Negative); Urobilinogen 0.2 EU/dL (Up TO 0.2)
[2019-04-21 17:52] LABS: WBC 20-50 HPF (0-5)
[2019-04-21 17:53] LABS: Bacteria Many HPF (Negative); C & S Indicated? Yes; Casts Negative LPF (Negative); Crystals Negative HPF (Negative); Epithelial Cells Few HPF (Negative); Mucus Negative (Negative)
== END 2019-04-21 18:40 | disposition home or self-care (01) ==
PROVIDERS: Emergency Provider Registered Nurse Emergency; PCP Physician Assistant Medical
DX: N39.0 Urinary tract infection, site not specified (principal); B96.20 Unspecified Escherichia coli [E. coli] as the cause of diseases classified elsewhere
CPT/HCPCS: 81025; 87077; 99283; 81003; 81015; 87086; 87186

== ENCOUNTER 2020-01-10 16:26 | Emergency (ER) | payer MEDICAID, SELFPAY ==
--- NOTE | 2020-01-10 16:27 | ED.GENADUL_ITS ---
Discharge Plan Disposition Patient Disposition: HOME Condition: Good Discharge Details Clinical Impression: Rash, Sore throat, Transaminitis, Abdominal pain Primary Care Provider: Sandi Lewis ED Provider: Shweta Pemberton Home Meds and New Rx's Prescriptions: New hydroxyzine HCl 25 mg tablet 25 mg PO TID PRN (Reason: itching) Qty: 10 RF: 0 Continued Mirena 20 mcg/24 hours (5 yrs) 52 mg Intrauterine Device 1 device INTRAUTERINE DIRECTED RF: 0 Discharge Instructions Instructions: Hydroxyzine (By mouth), Abdominal Pain (ED) Additional Instructions: Encourage water intake. Please use the hydroxyzine as prescribed to help with itching. No driving with this medication as it may cause increased sedation. You may also try topical options such as Benadryl cream to help with itching. Your liver enzymes are slightly elevated. This is likely associate with a viral illness as are your other symptoms. You have been tested for COVID-19. Please quarantine until these results are back. We will call you with results since these are back. If you develop fever/chills, increased pain, inability stay hydrated, jaundice, other new/worsening symptoms to seek care urgently once again. Otherwise, please follow-up with your primary care next week for reevaluation. Stand Alone Forms: PENDING COVID-19 TESTING, Work Release Referrals: Sandi Lewis [Primary Care Provider] - Medical Decision Making Patient is a pleasant 34-year-old female presents due to complaint of rash and intermittent abdominal pain. Abdominal pain has been every other day for the past 2 weeks. No nausea or vomiting. No change in appetite. No change in bowel or bladder habits. She indicates the epigastric and left upper quadrant is area of discomfort. Is not radiating to her back. Denies any EtOH use. Is not worsened with food. Not worsened with activity. Denies any shortness of breath or chest pain. She reports today she began having a sore throat. She denies any cough, shortness of breath. No ear pain. Denies any congestion. No fevers chills. Was also endorsing a rash. This regimen is for the patient for the past year and a half. She has been seen by dermatology and has had allergy testing. She was noted to have multiple allergens that the rash was diagnosed to be associated with times of physical and emotional stress. Seems to be worsened when she itches. She shows me photos from the day and the rash is very migratory. Currently, she has one focal area on the right side of her back that is erythematous around raised linear excoriation munguia. No rash noted elsewhere. Patient is status post cholecystectomy. On exam, she appears nontoxic. He said no rash, do not notice any focal abnormalities. Uvula is midline, no lymphadenopathy. Abdomen is benign although she does indicate the epigastric and left upper quadrant as area of discomfort. She has no splenomegaly or hepatomegaly. No tenderness with palpation. Lungs are clear. The patient's intermittent pain, I do feel that evaluation with blood work would be appropriate. However, she does not have any peritoneal findings or tenderness at this time, I will hold off on imaging. The patient sore throat as well as daughter's recent GI upset and travel [place], I did consider COVID-19 and will test her for this. Labs reviewed. Patient with mild leukocytosis with a white count of 11.9, this is down from the patient's typical baseline. She has an elevated glucose, will have her follow-up with her primary care regarding this. Her AST and ALT are both slightly elevated at 52 and 85 respectively. Lipase is within normal limits. Monospot was negative. COVID-19 is pending. I discussed these findings with the patient. I did advise that the mild transaminitis is likely associated with viral illness. I would like for her to have this rechecked with her primary care next week. However, return precautions regarding this were discussed. I do not see any evidence to suggest bacterial infection or surgical abdomen. Her primary concern today is the itching associated with her rash. We will treat with Atarax. She typically gets quite fatigued with any type of medication, advised that she only uses at night to help sleep. She will not drive will take this medication. Return precautions were discussed. She will quarantine until her COVID-19 testing is back. All of her questions and concerns were addressed and she is agreeable this plan. HPI General Mode of arrival: ambulatory . Date/Time Provider Initiated Documentation: 01/10/20 16:27 . Limitations to Documentation: no limitations . Information obtained by: patient and RN notes reviewed . HPI Narrative: Patient is a pleasant 34-year-old female, well-known to myself, presenting today with chief complaint of rash, sore throat and abdominal discomfort. She reports that she has been having intermittent upper abdominal pain for the past 2 weeks. States that it typically occurs every other day. States that this is brief and last maybe 15 minutes. She denies any nausea vomiting. No change in her appetite. No change in bowel or bladder habits. Denies any melena. States he states she began having a sore throat. No fevers or chills. Denies any cough. No shortness of breath. Denies chest pain. Also reports that she has a rash. This is a known rash for the patient for which she was followed by dermatology. This was diagnosed as a stress reaction. She gets a raised erythematous rash every time she scratches the area. Fairly diffuse. Related Data Home Medications Medication Instructions Recorded Confirmed Mirena 1 device INTRAUTERINE DIRECTED 04/21/19 01/10/20 hydroxyzine HCl 25 mg PO TID PRN #10 tab 01/10/20 Previous Rx's Medication Instructions Recorded hydroxyzine HCl 25 mg PO TID PRN #10 tab 01/10/20 Allergies Allergy/AdvReac Type Severity Reaction Status Date / Time shellfish derived Allergy Severe Anaphylaxsi Verified 01/10/20 16:41 s povidone-iodine Allergy Mild Verified 01/10/20 16:41 [From Betadine] soap [From Betadine] Allergy Mild Verified 01/10/20 16:41 cetirizine HCl [From Zyrtec] AdvReac Mild Headache Verified 01/10/20 16:41 General MENG: 4 Review of Systems Constitutional Constitutional: Reports as per HPI, Denies chills, Denies fatigue, Denies fever(s) and Denies headache(s) ENT Ears, Nose, Mouth, and Throat: Denies headache(s) Cardiovascular Cardiovascular: Reports as per HPI, Denies chest pain and Denies dyspnea Respiratory Respiratory: Reports as per HPI, Denies cough and Denies dyspnea Gastrointestinal Gastrointestinal: Reports as per HPI Musculoskeletal Musculoskeletal: Reports as per HPI and Denies back pain Integumentary/Breasts Skin/Breast: Reports as per HPI and Reports rash Neurologic Neurologic: Reports as per HPI and Denies headache(s) Endocrine Endocrine: Denies fatigue [facility] Medical History (Updated 01/10/20 @ 18:49 by JONATHAN Rodriguez) History of HPV infection -HRHPV in 2017, resolved Hypertension affecting , antepartum 07/2015 Pt developed DBP 102 range. 08/2017 Required Nifedipine and Labetalol by time of delivery. 09/22/17 No meds givenat time of postop discharge. IUD surveillance IUD strings not visible on exam. IUD in proper placement confirmed by US 03/25/18 Protein C deficiency (07/09/17) Protein C activity 51 (70-140) Tobacco use Surgical History section (11/05/10) LTCS. 38w2d 5lb5oz. M. IOL x48hr for IUGR. No labor, no cervical change. C/S for failed induction. Dr. Garces [facility]. 2 layer closure 0-Vicryl. 09/21/17 RC/S for IUGR @ 28w. F. 490gms. 9/9. [facility] [place]. Cholecystectomy Hysteroscopy 01/06/17 retrieval of Mirena IUD Family History Sister , Diabetes complicatio Diabetes Grandmother Stroke Social History Smoking/Tobacco Use Status: Current-Occasional Tobacco Type: cigarettes Tobacco: How many years used: 15 Alcohol Intake: current Alcohol Intake frequency: holidays/special occasions only Alcohol type: wine Drug use: Never Substance use type: does not use Do you feel safe at home: Yes Do you feel safe in your relationship?: Yes Exam Const General: cooperative, healthy appearing, comfortable, no acute distress and well developed Nutritional Appearance: average body habitus and well nourished Orientation: alert and awake [facility] Head: normal to inspection Ears: hearing grossly normal bilaterally, external ears normal and TM's normal bilaterally Mouth: oral mucosae normal, lip normal, tongue normal, moist mucous membranes, no trismus and No restricted motion Teeth and gingiva: dentition normal Throat: posterior oropharynx normal, tonsils normal and uvula midline Eyes General: appearance normal, both eyes and all related structures Neck Neck: normal visual inspection, full ROM, no lymphadenopathy, no meningeal signs, trachea midline and supple Resp Effort & Inspection: normal respiratory effort, able to speak in complete sentences and no respiratory distress Auscultation: clear to auscultation bilaterally, no rales, no rhonchi and no wheezes Cardio Rate: regular rate Rhythm: regular rhythm Heart Sounds: S1 normal and S2 normal GI Inspection: normal to inspection Palpation: soft, no hepatosplenomegaly, not firm, no guarding, no masses, not rigid and nontender Percussion: normal to percussion Auscultation: normal bowel sounds Back/Spine/Pelvis Back: no CVA tenderness Skin General skin exam: erythema (on her back, raised areas consistent with areas of excoriation) Neuro General: patient alert and patient awake Cognition: normal cognition Speech: speech normal Gait: normal gait Extrem General: normal to inspection, capillary refill normal, no pedal edema, no calf tenderness and normal gait Psych Appearance: grossly normal and well kempt Mental Status: mental status grossly normal Speech and Movement: speech and movement normal
[2020-01-10 16:36] VITALS: BP 179/103; PULSE 98; RESP 18; TEMP 36.6; O2SAT 98
[2020-01-10 18:08] LABS: Abs Immature Grans 0.03 10^3/uL (0.0-0.06); HCT 43.7 % (36.0-46.0); HGB 15.1 g/dL (11.2-15.7); MCH 31.6 pg (27.0-33.0); MCHC 34.6 % (32.0-36.0); MCV 91.4 fL (80-95); MPV 10.5 fL (8.0-11.0); Nucleated RBC 0 %; Platelet Count 289 10^3/uL (130-400); RBC 4.78 10^6/uL (3.93-5.22); RDW-SD 37.2 fL; WBC 11.93 10^3/uL (4.4-10.8)
[2020-01-10 18:16] LABS: Lipase 111 U/L (73-393)
[2020-01-10 18:19] LABS: Mono Screening Negative (Negative)
[2020-01-10 18:21] LABS: ALT 85 U/L (14-59); AST 52 U/L (15-37); Albumin 3.5 g/dL (3.4-5.0); Alkaline Phosphatase 103 U/L (46-116); Anion Gap 10.8 mmol/L (3-11); BUN 13 mg/dL (7-18); Bilirubin, Total 0.6 mg/dL (0.2-1.0); CO2 23.2 mmol/L (21.0-32.0); CREATININE 0.91 mg/dL (0.55-1.02); Calcium 8.6 mg/dL (8.5-10.1); Chloride 101 mmol/L (98-107); Glucose 189 mg/dL (74-106); Potassium 3.5 mmol/L (3.5-5.1); Sodium 135 mmol/L (136-145); Total Protein 7.7 g/dL (6.4-8.2)
[2020-01-10 18:26] LABS: Absolute Eosinophil Count 0.24 10^3/uL (0.0-0.7); Absolute Lymphocyte Count 4.06 10^3/uL (1.2-3.4); Absolute Monocyte Count 0.48 10^3/uL (0.1-0.8); Absolute Neutrophil Count 7.16 10^3/uL (1.2-6.7); Atypical Lymphocytes % 2; Bands % 1; Diff Comment Manual Differential; RBC Morphology Normal
[2020-01-10 18:47] VITALS: BP 160/106; PULSE 84; RESP 18; TEMP 36.6; O2SAT 98
[2020-01-10] MEDS: hydrOXYzine HCL 25 MG TAB 50 MG PO (18:47)
[2020-01-14 00:20] LABS: Patient Race White; SARS-CoV-2 RNA Undetected (Undetected); SARS-CoV-2 Specimen Source Nasopharynx
--- NOTE | 2020-01-14 09:16 | NUR.NOTE ---
01/14/20 @ 0916 - left message for patient to return call to ED for test results.
--- NOTE | 2020-01-14 09:24 | NUR.NOTE ---
01/14/20 @ 0924 patient returned call, after verification of patient's identity, revealed that covid test results were negative.
== END 2020-01-10 19:08 | disposition home or self-care (01) ==
LOC: ER 19:01
PROVIDERS: Emergency Provider Physician Assistant; PCP Physician Assistant Medical
DX: R74.01 Elevation of levels of liver transaminase levels (principal); R21 Rash and other nonspecific skin eruption; J02.9 Acute pharyngitis, unspecified; R10.13 Epigastric pain; L29.8 Other pruritus; Z11.59 Encounter for screening for other viral diseases
CPT/HCPCS: 36415; 80053; 81025; 83690; 99283; U0003; 85025; 86308; 99284